=== PATIENT | male | born 1980 | race Two or more races ===

== ENCOUNTER 2017-11-25 20:07 | Emergency (ER) | payer SELFPAY ==
[~2017-11-25] VITALS: Ht 180.3 cm; Wt 83.9 kg
[2017-11-25] MEDS ORDERED: EPINEPHrine HCL 1 MG/10 ML SYRG IV ONE (20:08)
[2017-11-25] MEDS ORDERED: CALCIUM CHLOR(10%) 100MG/ML 10ML SYRINGE IV ONE (20:08)
== END 2017-11-25 21:27 | disposition expired ==
LOC: ER 20:07 → EDBD 20:07 → ER 21:27
DX: I46.9 Cardiac arrest, cause unspecified (principal)
CPT/HCPCS: 92950; 99285; J0171